=== PATIENT | female | born 1965 | race Caucasian/White ===

== ENCOUNTER 2017-08-16 19:17 | Emergency (ER) | payer OTHER ==
[~2017-08-16] VITALS: Ht 157.5 cm; Wt 49.0 kg
--- NOTE | 2017-08-16 19:29 | Emergency Room Report ---
History of Present Illness General Chief Complaint: Neck Pain Source: Patient (Iglesia Hamilton) Present Illness HPI 52-year-old female patient presents to ER brought in by ambulance complaining of right shoulder muscle spasm. Patient reports symptoms began on during work, not after an acute injury or movement. Patient reports she took ibuprofen for pain and rested and symptoms were not present Thursday or Thursday. Patient reports that she woke up today to go to work and symptoms reappeared. Patient reports pain with shoulder and neck movement. Patient reports when she swallows her shoulder hurts. Patient reports taking ibuprofen again for pain with mild relief of symptoms. Patient denies fever, chest pain, shortness breath, abdominal pain. Patient is calm. Patient denies other acute symptoms. (Iglesia Hamilton) Allergies: Coded Allergies: No Known Allergies (Unverified , 08/16/17) Patient History Past Medical History: see triage record Reviewed Nursing Documentation: PMH: Agreed; PSxH: Agreed (Iglesia Hamilton) Nursing Documentation-PMH Past Medical History: No Stated History (Iglesia Hamilton) Review of Systems All Other Systems: negative except mentioned in HPI (Iglesia Hamilton) Physical Exam Vital Signs Date Time Temp Pulse Resp B/P (MAP) Pulse Ox O2 Delivery O2 Flow Rate FiO2 08/16/17 19:14 99.0 84 16 107/71 97 Room Air 99.0 Sp02 EP Interpretation: reviewed, normal General Appearance: well appearing, no apparent distress, alert, GCS 15, non- toxic Head: normocephalic, atraumatic Eyes: bilateral eye normal inspection, bilateral eye PERRL ENT: hearing grossly normal, normal pharynx, no angioedema, normal voice, uvula midline, moist mucus membranes, other - and tonsillar swelling, no tonsillar exudates, no pharyngeal erythema Neck: full range of motion, no bony tend Respiratory: lungs clear, normal breath sounds, no rhonchi, no respiratory distress, no accessory muscle use, no wheezing, speaking full sentences Cardiovascular #1: regular rate, rhythm, no edema Cardiovascular #2: 2+ radial (R), 2+ radial (L) Musculoskeletal: back normal, digits/nails normal, gait/station normal, normal range of motion, tender - right scapula Psychiatric: mood/affect normal Skin: no rash Lymphatic: no adenopathy (Iglesia Hamilton) Medical Decision Making PA Attestation Dr. Vivar is my supervising Physician whom patient management has been discussed with. (Iglesia Hamilton) Diagnostic Impression: Primary Impression: Pain of right scapula Additional Impression: Muscle spasm ER Course Pt. presents to the ED c/o right scapula pain and muscle stiffness. Ddx considered but are not limited to fracture, sprain, strain, contusion, muscle spasm. Vital signs: are WNL, pt. is afebrile Ordered X-ray and pain medication. ER COURSE PE: full ROM, no scapular winging, no tonsillar exudates or swelling, uvula midline. Provided with pain medication, lidocaine patch, muscle relaxant. Patient declined x-ray. Administration of medication patient reports relief of symptoms, reports okay for discharge to home. Instructed patient on rest, ice, heat. Instructed patient to follow-up with Workmen's Compensation physician. Completed Workmen's Compensation paperwork. Followup with primary care provider for medical clearance to return to activities. Discuss referral to ortho/pain management/PT as needed. Discuss further imaging with MRI/CT as needed. DISCHARGE: -Rx provided for Tylenol for pain symptoms. -Rx provided for Methocarbamol. SE drowsiness, do not drink, drive, or operate heavy machinery while using. At this time pt. is stable for d/c to home. Patient is resting comfortably, in no acute distress, nontoxic appearing, talking without difficulty. Will provide printed patient care instructions, and any necessary prescriptions. Patient instructed to follow with primary care provider in 3 - 5 days and to request further orthopedic follow-up. Care plan and follow up instructions have been discussed with the patient prior to discharge. Take medications as directed. Patient questions asked and answered. Patient reports understanding and agreement to treatment plan. ER precautions given, patient instructed to return to ER immediately for any new or worsening of symptoms. - Please note that this Emergency Department Report was dictated using [employer] technology software, occasionally this can lead to erroneous entry secondary to interpretation by the dictation equipment. (Iglesia Hamilton) Other X-Ray Diagnostic Results Other X-Ray Diagnostic Results : Electronically Signed by: Jourdanibe documentation reviewed by me and is accurate, Sylvester Vivar MD. (Sylvester Vivar M.D.) Last Vital Signs Date Time Temp Pulse Resp B/P (MAP) Pulse Ox O2 Delivery O2 Flow Rate FiO2 08/16/17 19:14 99.0 84 16 107/71 97 Room Air 99.0 Status: improved (Iglesia Hamilton) Disposition: HOME, SELF-CARE Condition: Stable Scripts Lidocaine (Lidocaine) 1 Each Adh..patch 700 MG TP DAILY for 7 Days, #7 PATCH Prov: Iglesia Hamilton 08/16/17 Methocarbamol* (ROBAXIN*) 500 Mg Tablet 500 MG PO TID, #21 TAB 0 Refills Prov: Iglesia Hamilton 08/16/17 Patient Instructions: Muscle Cramps and Spasms, [id number] Additional Instructions: Patient instructed to follow up with primary care provider and discuss further referral to orthopedics or physical therapy at that time. Followup with workman's comp physician. Patient instructed on rest, ice, and heat. Side effect of muscle relaxant is drowsiness, do not take prior to drinking, driving or operating heavy machinery. Take medications as directed. Patient questions asked and answered. ER precautions given, patient instructed to return to ER immediately for any new or worsening of symptoms. Iglesia Hamilton August 16, 2017 19:29 Sylvester Vivar M.D. August 17, 2017 04:53
[2017-08-16] MEDS ORDERED: Ketorolac 30mg Inj IM ONE (19:30)
[2017-08-16] MEDS ORDERED: Methocarbamol 750mg tab ORAL ONE (19:30)
[2017-08-16] MEDS ORDERED: ROBAXIN500 MG PO (19:59)
[2017-08-16] MEDS ORDERED: LIDOCAINE700 M1 TP (20:18)
[2017-08-16 20:38] VITALS: BP 0/0
== END 2017-08-16 20:38 | disposition home or self-care (01) ==
LOC: EDBD 19:17 → EMR 20:25
DX: M25.511 Pain in right shoulder (principal); M62.838 Other muscle spasm
CPT/HCPCS: 96372; 99284; J1885